=== PATIENT | male | born 1985 | race Caucasian/White ===

== ENCOUNTER 2021-07-13 14:39 | Emergency (ER) | payer OTHER ==
[~2021-07-13] VITALS: Ht 180.3 cm; Wt 91.6 kg
--- NOTE | 2021-07-13 15:30 | NUR ---
[employer] 59 AND [employer] C/O ETOH AND POSSIBLE DRUG USED. PT IS UNCOOPERATIVE AND AGGRESSIVE TOWARDS STAFF. THE PATIENT IS ALERT TO NAME. CURRENTLY THE PATIENT IS YELLING WITH NO APPARENT DISTRESS. RESPIRATION REGULAR AND UNLABORED. DENIES PAIN. DENIES SI/HI. ATTACHED TO THE MONITOR. OFFICER AT THE BEDSIDE. WILL CONTINUE TO MONITOR THE PATIENT.
[2021-07-13] MEDS ORDERED: IV NS 0.9% 1,000 ML BAG IV ONE (16:00)
--- NOTE | 2021-07-13 16:05 | NUR ---
started iv line, blood specimen collected and sent to the lab. the line is saline locked.
[2021-07-13 16:13] LABS: BASOPHILS % (AUTO) 0.3 % (0.0-2.0); EOSINOPHILS % (AUTO) 1.6 % (0.0-6.0); HEMATOCRIT 48 % (39-51); HEMOGLOBIN 16.1 g/dL (13.5-17.5); LYMPHOCYTES # (AUTO) 1.9 K/uL (0.8-4.8); LYMPHOCYTES % (AUTO) 18.9 % (20.0-44.0); MEAN CORPUSCULAR HGB CONC 34 g/dl (31.0-36.0); MEAN CORPUSCULAR VOLUME 97 fL (80-96); MONOCYTES # (AUTO) 0.7 K/uL (0.1-1.30); MONOCYTES % (AUTO) 7.2 % (2.0-12.0); NEUTROPHILS # (AUTO) 7.3 K/uL (1.8-8.9); PLATELET COUNT (AUTO) 240 K/uL (150-450); RED BLOOD CELL COUNT(AUTO) 4.91 MIL/uL (4.5-6.0); WHITE BLOOD COUNT (AUTO) 10.1 K/uL (4.3-11.0)
--- NOTE | 2021-07-13 16:16 | NUR ---
THE PATIENT IS TAKEN TO CT
--- NOTE | 2021-07-13 16:30 | NUR ---
THE PATIENT IS BACK FROM CT
[2021-07-13 16:46] LABS: ALBUMIN 3.5 g/dL (3.4-5.0); BILIRUBIN,DIRECT 0.2 mg/dL (0.0-0.2); BILIRUBIN,TOTAL 0.3 mg/dL (0.2-1.0); CREATININE 1.2 mg/dL (0.6-1.3); POTASSIUM 3.9 mmol/L (3.5-5.1); TOTAL PROTEIN, SERUM 7.7 g/dL (6.4-8.2)
[2021-07-13 18:02] LABS: BILIRUBIN,URINE SMALL (NEGATIVE); COLOR,URINE YELLOW (YELLOW); LEUKOCYTE ESTERASE ,URINE Negative (NEGATIVE); NITRITE, URINE Negative (NEGATIVE); PH,URINE 5.5 (5.0-8.0); PROTEIN,URINE 30 mg/dl (NEGATIVE); UGLUCOSE Negative (NEGATIVE); UROBILINOGEN,URINE 0.2 EU/dL (0.2)
[2021-07-13 18:26] LABS: BACTERIA,URINE Few /HPF (None Seen); MUCUS,URINE Few /LPF (None Seen); SPERM,URINE Few /HPF (None Seen); SQUAMOUS EPITHELIAL CELL,UR Few /HPF (None Seen)
--- NOTE | 2021-07-13 19:05 | NUR ---
PT STAURATING 90% WHILE SLEEPING, PLACED ON 2L NC, SATURATING 97%
--- NOTE | 2021-07-13 20:05 | NUR ---
Patient is resting comfortably in bed with eyes closed. Easily aroused. VSS
--- NOTE | 2021-07-13 21:05 | NUR ---
PT SLEEPING, ATTACHED TO MONITOR, NAD
--- NOTE | 2021-07-13 22:06 | NUR ---
PT SLEEPING, ATTACHED TO MONITOR AND POX. BREATHING EVENLY AND UNLABORED
--- NOTE | 2021-07-13 23:45 | NUR ---
spoke to brotherwiley for pickle sorter 30min
--- NOTE | 2021-07-14 00:34 | NUR ---
IV removed. Catheter intact and site benign. Pressure and 4x4 applied to site. No bleeding noted.
--- NOTE | 2021-07-14 00:35 | NUR ---
PT'S BROTHER IS HERE TO PIPING BLOCKER THE PATIENT. PT WAS ASSISTED TO THE CAR ON WHEELCHAIR.
[2021-07-14 00:36] VITALS: BP 135/86
== END 2021-07-14 00:37 | disposition home or self-care (01) ==
LOC: ER 14:43
DX: F10.129 Alcohol abuse with intoxication, unspecified (principal); F19.10 Other psychoactive substance abuse, uncomplicated; F17.200 Nicotine dependence, unspecified, uncomplicated; R00.0 Tachycardia, unspecified; R51.9 Headache, unspecified; Y90.8 Blood alcohol level of 240 mg/100 ml or more
CPT/HCPCS: 36415; 70450; 71045; 72125; 80048; 80076; 80143; 80307; 80320; 81001; 84443; 85025; 93005; 96360; 99285; J7030; G0480